=== PATIENT | female | born 2000 | race Caucasian/White ===

== ENCOUNTER 2021-01-05 07:27 | Outpatient (CLI) | payer OTHER | END 2021-01-05 08:41 | disposition home or self-care (01) | LOC: MRI 07:27 | PROVIDERS: ATTEND Otolaryngology | DX: R42 Dizziness and giddiness (principal) | CPT/HCPCS: 70551 ==

== ENCOUNTER 2024-04-01 11:32 | Emergency (ER) | payer OTHER ==
[~2024-04-01] VITALS: Ht 157.5 cm; Wt 115.2 kg
[2024-04-01] MEDS ORDERED: ORPHENADRINE CITRATE 30 MG/ML AMPUL IM ONE (14:30)
[2024-04-01] MEDS ORDERED: DEXAMETHASONE SODIUM PHOSPHATE 4 MG/ML VIAL IM ONE (14:30)
[2024-04-01] MEDS ORDERED: ORPHENADRINE CITRATE 30 MG/ML AMPUL ONE (14:34)
[2024-04-01] MEDS ORDERED: DEXAMETHASONE SODIUM PHOSPHATE 4 MG/ML VIAL ONE (14:34)
[2024-04-01] MEDS ORDERED: NORFLEX100MG PO (15:38)
[2024-04-01] MEDS ORDERED: ACETAMINOPHEN 500 MG GEL..CAP PO ONE ×2 (16:00→16:02)
== END 2024-04-01 16:08 ==
LOC: ER 11:34
DX: M79.605 Pain in left leg (principal); M54.50 Low back pain, unspecified; Z88.6 Allergy status to analgesic agent